=== PATIENT | female | born 1955 | race Caucasian/White ===

== ENCOUNTER 2017-09-03 11:30 | Emergency (ER) | payer MEDICAID ==
--- NOTE | 2017-09-03 12:24 | EDM.PDOC ---
ED HPI GENERAL MEDICAL PROBLEM - General Chief Complaint: General Stated Complaint: MEDICAL VIA NORTH Time Seen by Provider: 09/03/17 11:45 Source of Information: Reports: Patient, EMS History Limitations: Reports: No Limitations - History of Present Illness INITIAL COMMENTS - FREE TEXT/NARRATIVE: 62-year-old female who became short of breath and developed chest tightness after having a confrontation with her employer. She felt she was unable to breathe and started developing numbness in her hands and face so they called the ambulance. EMS had a normal EKG, normal vitals other than O2 saturations at 100%. Patient has a stridorous-like breath sound on inspiration when she gets anxious. She does not have a long-standing anxiety history. She has been dealing with an inflamed left knee with effusion and pain over the past several weeks. No fevers or chills. No cough. Onset: Sudden Location: Reports: Chest Quality: Reports: Pressure Severity: Moderate Associated Symptoms: Reports: Chest Pain, Malaise. Denies: Cough - Related Data Allergies Allergy/AdvReac Type Severity Reaction Status Date / Time penicillin V [Penicillin V] Allergy Severe Rash Verified 10/30/15 18:53 fentanyl AdvReac Severe Vomiting Verified 10/30/15 18:53 nortriptyline [Nortriptyline] AdvReac Mild bloating,ga Verified 10/30/15 18:53 s Home Meds: Home Meds Lisinopril [Lisinopril] 20 mg PO DAILY 05/24/13 [History] Citalopram Hydrobromide [Celexa] 25 mg PO BEDTIME 08/24/17 [History] Gabapentin [Neurontin] 300 mg PO BID 08/24/17 [History] Morphine [MS Contin] 15 mg PO Q12HR 08/24/17 [History] oxyCODONE HCl [Oxycodone HCl] 5 mg PO TID PRN 08/24/17 [History] Past Medical History Cardiovascular History: Reports: Hypertension Gastrointestinal History: Reports: Cholelithiasis Musculoskeletal History: Reports: Back Pain, Chronic, Other (See Below) Other Musculoskeletal History: L knee pain Psychiatric History: Reports: Anxiety, Depression, Suicidal Ideation - Infectious Disease History Infectious Disease History: Reports: Chicken Pox, Measles, Mumps - Past Surgical History GI Surgical History: Reports: Cholecystectomy Female Surgical History: Reports: Tubal Ligation Social & Family History - Tobacco Use Smoking Status *Q: Former Smoker Years of Tobacco use: 20 Used Tobacco, but Quit: Yes Month Tobacco Last Used: 10 years ago Second Hand Smoke Exposure: No - Caffeine Use Caffeine Use: Reports: Coffee - Alcohol Use Days Per Week of Alcohol Use: 0 - Recreational Drug Use Recreational Drug Use: No ED ROS GENERAL - Review of Systems Review Of Systems: See Below Constitutional: Reports: Malaise. Denies: Fever, Chills HEENT: Reports: Other (perioral numbness) Respiratory: Reports: Shortness of Breath GI/Abdominal: Denies: Nausea, Vomiting Musculoskeletal: Reports: Back Pain, Other (Left knee pain) Skin: Reports: No Symptoms Neurological: Reports: Dizziness, Paresthesia (Of both hands and face). Denies : Headache Psychiatric: Reports: Anxiety ED EXAM, GENERAL - Physical Exam Exam: See Below Exam Limited By: No Limitations General Appearance: Alert, Anxious, Mild Distress Eye Exam: Bilateral Eye: Normal Inspection Respiratory/Chest: No Respiratory Distress, Lungs Clear Cardiovascular: Regular Rate, Rhythm Neurological: Alert, Oriented. No: Confused, Disoriented, Slow to Respond Psychiatric: Anxious Skin Exam: Warm, Dry Course - Vital Signs Last Recorded V/S: Last Vital Signs Temp 97.5 F 09/03/17 11:43 Pulse 102 H 09/03/17 14:19 Resp 18 09/03/17 14:19 BP 126/62 09/03/17 14:19 Pulse Ox 95 09/03/17 14:19 - Orders/Labs/Meds Labs: Laboratory Tests 09/03/17 09/03/17 09/03/17 Range/Units 12:09 12:25 12:25 WBC 8.7 (4.5-11.0) K/uL RBC 4.28 (3.30-5.50) M/uL Hgb 12.0 (12.0-15.0) g/dL Hct 37.0 (36.0-48.0) % MCV 86 (80-98) fL MCH 28 (27-31) pg MCHC 32 (32-36) % Plt Count 355 (150-400) K/uL Neut % (Auto) 77 H (36-66) % Lymph % (Auto) 13 L (24-44) % [place]ne % (Auto) 10 H (2-6) % Eos % (Auto) 0 L (2-4) % Baso % (Auto) 0 (0-1) % D-Dimer, Quantitative 1790 H (0.0-400.0) ng/mL Puncture Site Lt radial ABG pH 7.538 H (7.350-7.450) ABG pCO2 23.4 L (35.0-42.0) mmHg ABG pO2 106.0 H (75.0-100.0) mmHg ABG HCO3 19.9 L (22.0-26.0) mmol/L ABG Total CO2 17.6 L (21.0-25.0) mmol/L ABG O2 Saturation 98.2 H (95.0-98.0) % ABG O2 Content 16.0 (15.0-23.0) %vol ABG Base Excess -1.2 mm/L ABG Hemoglobin 11.6 L (12.0-16.0) g/dL ABG Oxyhemoglobin 96.7 % ABG Carboxyhemoglobin 0.6 (0.0-1.6) % ABG Methemoglobin 0.9 % Manny Test Passed O2 Delivery Device Room air Sodium (140-148) mmol/L Potassium (3.6-5.2) mmol/L Chloride (100-108) mmol/L Carbon Dioxide (21-32) mmol/L Anion Gap (5.0-14.0) mmol/L BUN (7-18) mg/dL Creatinine (0.6-1.0) mg/dL Est Cr Clr Drug Dosing mL/min Estimated GFR (MDRD) (>60) Glucose (74-106) mg/dL Calcium (8.5-10.1) mg/dL 09/03/17 Range/Units 12:25 WBC (4.5-11.0) K/uL RBC (3.30-5.50) M/uL Hgb (12.0-15.0) g/dL Hct (36.0-48.0) % MCV (80-98) fL MCH (27-31) pg MCHC (32-36) % Plt Count (150-400) K/uL Neut % (Auto) (36-66) % Lymph % (Auto) (24-44) % [place]ne % (Auto) (2-6) % Eos % (Auto) (2-4) % Baso % (Auto) (0-1) % D-Dimer, Quantitative (0.0-400.0) ng/mL Puncture Site ABG pH (7.350-7.450) ABG pCO2 (35.0-42.0) mmHg ABG pO2 (75.0-100.0) mmHg ABG HCO3 (22.0-26.0) mmol/L ABG Total CO2 (21.0-25.0) mmol/L ABG O2 Saturation (95.0-98.0) % ABG O2 Content (15.0-23.0) %vol ABG Base Excess mm/L ABG Hemoglobin (12.0-16.0) g/dL ABG Oxyhemoglobin % ABG Carboxyhemoglobin (0.0-1.6) % ABG Methemoglobin % Manny Test O2 Delivery Device Sodium 139 L (140-148) mmol/L Potassium 3.9 (3.6-5.2) mmol/L Chloride 102 (100-108) mmol/L Carbon Dioxide 26 (21-32) mmol/L Anion Gap 14.9 H (5.0-14.0) mmol/L BUN 32 H D (7-18) mg/dL Creatinine 1.6 H (0.6-1.0) mg/dL Est Cr Clr Drug Dosing 35.00 mL/min Estimated GFR (MDRD) 33 L (>60) Glucose 111 H (74-106) mg/dL Calcium 9.7 (8.5-10.1) mg/dL Meds: Medications Discontinued Medications Generic Name Dose Route Start Last Admin Trade Name Freq PRN Reason Stop Dose Admin Lorazepam 1 mg 09/03/17 13:22 09/03/17 13:32 Ativan IM 09/03/17 13:23 1 mg ONETIME ONE Administration - Re-Assessments/Exams Free Text/Narrative Re-Assessment/Exam: 09/03/17 12:25 O2 saturations remained at 99-100% despite the patient slowing her breathing. I tried to reassure her but she remained anxious, so ABGs, CBC, BMP and chest x- ray were obtained. She was continued to be observed. 09/03/17 13:23 ABGs confirmed fairly significant hyperventilation. Her BUN and creatinine also returned elevated indicating some volume contraction. She denied any vomiting. D -dimer was mildly elevated likely from her recent invasive procedures on the left knee. She was given 1 mg of Ativan IM. 09/03/17 14:21 45 minutes after the Ativan injection everything normalized. O2 saturations at 95%, blood pressure normalized, pulse was normal, and the patient felt markedly better subjectively. She was encouraged to rest the next few days, drink plenty of water and consider rechecking with Dr. Luis next week to reassess her anxiety level as well as her kidney function and hydration. Departure - Departure Time of Disposition: 14:40 Disposition: Home, Self-Care 01 Condition: Good Clinical Impression: Acute hyperventilation syndrome - Discharge Information Instructions: Hyperventilation Referrals: PCP,None [Ordering Only Provider] - Forms: ED Department Discharge Care Plan Goals: Try to rest the rest of today, drink plenty of water and increase activity as tolerated. Consider rechecking next week with Dr. Luis, or return to the emergency room at any time if worsening or concerns.
[2017-09-03] MEDS ORDERED: LORazepam 2 MG/ML MDV IM ONE (13:22)
[2017-09-03 14:21] VITALS: BP 126/62
--- NOTE | 2017-09-03 16:24 | CR ---
Chest 2V HISTORY: dyspnea COMPARISON: 02/03/2009 FINDINGS: Lungs appear clear and normally aerated. Cardiomediastinal silhouette is within normal limits. No vas cular redistribution or pleural fluid can be seen. Bony structures and soft tissues are unremarkable. IMPRESSION: No acute chest abnormality or significant interval change is identified.
== END 2017-09-03 14:40 | disposition home or self-care (01) ==
LOC: JP.ED 11:30
DX: F45.8 Other somatoform disorders (principal); I10 Essential (primary) hypertension; F32.9 Major depressive disorder, single episode, unspecified; Z87.891 Personal history of nicotine dependence; Z79.899 Other long term (current) drug therapy; Z88.0 Allergy status to penicillin; Z88.8 Allergy status to other drugs, medicaments and biological substances
CPT/HCPCS: 36415; 36600; 71020; 80048; 82803; 85025; 85379; 96372; 99285; J2060

== ENCOUNTER 2018-03-06 20:13 | Emergency (ER) | payer MEDICAID ==
[2018-03-06 20:39] VITALS: BP 123/63
[2018-03-06] MEDS ORDERED: cefTRIAXone 500 MG Vial IVPUSH ONE (21:30)
[2018-03-06] MEDS ORDERED: Sodium Chloride 0.9% 10 ML Syringe FLUSH PRN (21:30)
--- NOTE | 2018-03-06 21:35 | EDM.PDOC ---
ED HPI GENERAL MEDICAL PROBLEM - General Chief Complaint: Skin Complaint Stated Complaint: RED RING/BUMP ON BACK Time Seen by Provider: 03/06/18 20:45 Source of Information: Reports: Patient History Limitations: Reports: No Limitations - History of Present Illness INITIAL COMMENTS - FREE TEXT/NARRATIVE: Elizabeth presents today with complaints of painful rash to left upper back for 7 days. She states she had a pimple, her popped it and now has more pain and redness. She does not recall a tick bite. - Related Data Allergies Allergy/AdvReac Type Severity Reaction Status Date / Time penicillin V [Penicillin V] Allergy Severe Rash Verified 03/06/18 20:31 fentanyl AdvReac Severe Vomiting Verified 03/06/18 20:31 nortriptyline [Nortriptyline] AdvReac Mild bloating,ga Verified 03/06/18 20:31 s Home Meds: Home Meds Lisinopril 20 mg PO DAILY 05/24/13 [History] Citalopram Hydrobromide [Celexa] 25 mg PO BEDTIME 08/24/17 [History] Gabapentin [Neurontin] 300 mg PO BID 08/24/17 [History] Morphine [MS Contin] 15 mg PO Q12HR 08/24/17 [History] oxyCODONE HCl [Oxycodone HCl] 5 mg PO TID PRN 08/24/17 [History] busPIRone HCl [Buspirone HCl] 1 tab PO BID 03/06/18 [History] tiZANidine [Zanaflex] 1 tab PO BID 03/06/18 [History] traZODone HCl [Trazodone HCl] 2.5 cap PO BEDTIME 03/06/18 [History] Past Medical History Cardiovascular History: Reports: Hypertension Gastrointestinal History: Reports: Cholelithiasis Musculoskeletal History: Reports: Back Pain, Chronic, Other (See Below) Other Musculoskeletal History: L knee pain Psychiatric History: Reports: Anxiety, Depression, Suicidal Ideation - Infectious Disease History Infectious Disease History: Reports: Chicken Pox, Measles, Mumps - Past Surgical History GI Surgical History: Reports: Cholecystectomy Female Surgical History: Reports: Tubal Ligation Social & Family History - Tobacco Use Smoking Status *Q: Never Smoker - Caffeine Use Caffeine Use: Reports: Coffee ED ROS GENERAL - Review of Systems Review Of Systems: See Below Constitutional: Denies: Fever, Chills, Malaise, Weakness HEENT: Reports: No Symptoms Respiratory: Reports: No Symptoms Cardiovascular: Reports: No Symptoms Endocrine: Reports: No Symptoms GI/Abdominal: Reports: No Symptoms : Reports: No Symptoms Musculoskeletal: Reports: Other (She complains of left knee pain, however states this is chronic and she is scheduled for a Left TKA March 12, 2018. ). Denies: Joint Pain Skin: Reports: Rash, Erythema, Wound Neurological: Reports: No Symptoms Psychiatric: Reports: No Symptoms Hematologic/Lymphatic: Reports: No Symptoms Immunologic: Reports: No Symptoms ED EXAM, SKIN/RASH Exam: See Below Text/Narrative:: Elizabeth is an alert and oriented 62 year old female presenting with complaints of red rash to left upper back for 7 to 10 days. She states the rash started out as a pimple type wound then worsened after her tried to pop the wound. History positive for tick exposure. Exam Limited By: No Limitations General Appearance: Alert, WD/WN, No Apparent Distress Eye Exam: Bilateral Eye: EOMI, Normal Inspection, PERRL Ears: Normal External Exam, Normal Canal, Hearing Grossly Normal, Normal TMs Nose: Normal Inspection, Normal Mucosa, No Blood Throat/Mouth: Normal Inspection, Normal Oropharynx, Normal Voice, No Airway Compromise Head: Atraumatic, Normocephalic Neck: Normal Inspection, Supple, Non-Tender, Full Range of Motion. No: Lymphadenopathy (R), Lymphadenopathy (L) Respiratory/Chest: No Respiratory Distress, Lungs Clear, Normal Breath Sounds, No Accessory Muscle Use, Chest Non-Tender Cardiovascular: Normal Peripheral Pulses, Regular Rate, Rhythm, No Edema, No Murmur, No Rub Peripheral Pulses: 2+: Radial (L), Radial (R) Back Exam: Full Range of Motion, Other (tenderness and 6 to 8cm area of erythema , redness with central clearing to left upper back. No drainage. ). No: CVA Tenderness (R), CVA Tenderness (L) Extremities: Normal Inspection, Normal Range of Motion, Non-Tender, No Pedal Edema, Normal Capillary Refill Neurological: Alert, Oriented, CN II-XII Intact, Normal Cognition, Normal Gait, No Motor/Sensory Deficits Psychiatric: Normal Affect, Normal Mood Skin: Warm, Dry, Erythema, Wound/Incision, Other (small area of fluctuance to center of erythema. ) Location, Skin: Back Characteristics: Maculopapular, Erythematous, Other (no scaling of round rash noted. ). No: Vesicular, Bullous, Urticarial Associated features: Warmth, Tenderness, Inflammation. No: Induration, Scaling , Weeping, Rough Lymphatic: No Adenopathy Course - Vital Signs Last Recorded V/S: Last Vital Signs Temp 36.9 C 03/06/18 20:37 Pulse 67 03/06/18 20:37 Resp 14 03/06/18 20:37 BP 123/63 03/06/18 20:37 Pulse Ox 98 03/06/18 20:37 - Orders/Labs/Meds Orders: Active Orders 24 hr Category Date Time Status Saline Lock Insert [OM.PC] Routine Oth 03/06/18 21:30 Ordered Labs: Laboratory Tests 03/06/18 Range/Units 21:12 WBC 8.3 (4.5-11.0) K/uL RBC 4.56 (3.30-5.50) M/uL Hgb 12.0 (12.0-15.0) g/dL Hct 37.9 (36.0-48.0) % MCV 83 (80-98) fL MCH 26 L (27-31) pg MCHC 32 (32-36) % Plt Count 256 (150-400) K/uL Neut % (Auto) 66 (36-66) % Lymph % (Auto) 22 L (24-44) % [place] % (Auto) 11 H (2-6) % Eos % (Auto) 2 (2-4) % Baso % (Auto) 0 (0-1) % Patient lab work reviewe. Lymes pending. We will give rocephin 2gram IV, discharge patient with doxycycline 100mg PO BID for 14 days. Officer in agreement with plan. Meds: Medications Discontinued Medications Generic Name Dose Route Start Last Admin Trade Name Freq PRN Reason Stop Dose Admin Ceftriaxone Sodium 2,000 mg 03/06/18 21:30 03/06/18 21:57 Rocephin IVPUSH 03/06/18 21:31 Not Given ONETIME ONE Ceftriaxone Sodium Confirm 03/06/18 21:48 03/06/18 22:21 Rocephin Administered 03/06/18 21:49 Not Given Dose 2 gm .ROUTE .STK-MED ONE Ceftriaxone Sodium 2 gm/ 50 mls @ 100 mls/hr 03/06/18 22:01 03/06/18 22:03 Sodium Chloride IV 03/06/18 22:30 10 mls/hr ONETIME ONE Administration Sodium Chloride 10 ml 03/06/18 21:30 03/06/18 22:04 Saline Flush FLUSH 10 ml ASDIRECTED PRN Administration Keep Vein Open Departure - Departure Time of Disposition: 22:05 Disposition: Home, Self-Care 01 Condition: Good Clinical Impression: Erythema migrans (Lyme disease) - Discharge Information Instructions: Lyme Disease Referrals: Justo Luis Sr, MD [Primary Care Provider] - Forms: ED Department Discharge Additional Instructions: You have been evaluated and treated for erythema migrans, bulls-eye rash to left upper back. You were given rocephin 2 gram IV in the emergency room. Take doxycycline 100mg by mouth twice per day for 14 days. Push oral fluids. Contact your ortho provider and reschedule your total knee replacement procedure until your infection has cleared up. Return for worsening, issues or concerns. - My Orders Last 24 Hours: My Active Orders 03/06/18 21:30 Saline Lock Insert [OM.PC] Routine - Assessment/Plan Last 24 Hours: My Active Orders 03/06/18 21:30 Saline Lock Insert [OM.PC] Routine Assessment:: Erythema migrans (Lyme disease) Plan: Patient evaluated and treated for erythema migrans, bulls-eye rash to left upper back. She was given rocephin 2 gram IV in the emergency room. Take doxycycline 100mg by mouth twice per day for 14 days. Push oral fluids. Contact ortho provider and reschedule total knee replacement procedure until infection has cleared up. Return for worsening, issues or concerns.
[2018-03-06] MEDS ORDERED: cefTRIAXone 2 GM Vial ONE (21:48)
[2018-03-06] MEDS ORDERED: cefTRIAXone 2 GM in Sodium Chloride 0.9% 50 ML IV ONE (22:01)
== END 2018-03-06 22:42 | disposition home or self-care (01) ==
LOC: JP.ED 20:13
DX: A69.20 Lyme disease, unspecified (principal); I10 Essential (primary) hypertension; Z88.0 Allergy status to penicillin; Z88.8 Allergy status to other drugs, medicaments and biological substances
CPT/HCPCS: 36415; 85025; 96374; 99283; J0696; J7050

== ENCOUNTER 2020-12-01 14:58 | Emergency (ER) | payer MEDICAID ==
[2020-12-01 15:31] VITALS: BP 179/81; PULSE 63
--- NOTE | 2020-12-01 16:45 | EDM.PDOC ---
ED HPI GENERAL MEDICAL PROBLEM - General Chief Complaint: General Stated Complaint: MEDICAL VIA NORTH Time Seen by Provider: 12/01/20 16:03 Source of Information: Reports: Patient, EMS History Limitations: Reports: No Limitations - History of Present Illness INITIAL COMMENTS - FREE TEXT/NARRATIVE: Patient presents to the ER today via EMS due to fall that occurred at work. She states fall occurred around 1355, she reports feeling dazed after hitting the back of her head for about 5-10 minutes. A co-worker helped her off the floor / to sitting position. 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 She then had to call a nurse triage/advise line as required by her company to determine further evaluation. It was recommended she go to the ER so EMS was called. She denies any LOC/black out or passing out. She denies any other associated symptoms such as speech change, visual disturbance, headache, weakness--she does state she has head/scalp pain where she hit her head & has knot on her head. 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 - Related Data Allergies Allergy/AdvReac Type Severity Reaction Status Date / Time penicillin V [Penicillin V] Allergy Severe Rash Verified 12/01/20 15:10 fentanyl AdvReac Severe Vomiting Verified 12/01/20 15:10 nortriptyline [Nortriptyline] AdvReac Mild bloating,ga Verified 12/01/20 15:10 s Home Meds: Home Meds Gabapentin [Neurontin] 300 mg PO BID 08/24/17 [History] Morphine [MS Contin] 15 mg PO Q12HR 08/24/17 [History] oxyCODONE HCl [Oxycodone HCl] 5 mg PO TID PRN 08/24/17 [History] busPIRone HCl [Buspirone HCl] 1 tab PO BID 03/06/18 [History] tiZANidine [Zanaflex] 1 tab PO BID 03/06/18 [History] traZODone HCl [Trazodone HCl] 2.5 cap PO BEDTIME 03/06/18 [History] Sertraline [Zoloft] 1 tab PO DAILY 12/01/20 [History] Past Medical History Cardiovascular History: Reports: Hypertension Gastrointestinal History: Reports: Cholelithiasis Musculoskeletal History: Reports: Back Pain, Chronic, Other (See Below) Other Musculoskeletal History: L knee pain Psychiatric History: Reports: Anxiety, Depression, Suicidal Ideation - Infectious Disease History Infectious Disease History: Reports: Chicken Pox, Measles, Mumps - Past Surgical History GI Surgical History: Reports: Cholecystectomy Female Surgical History: Reports: Tubal Ligation Social & Family History - Tobacco Use Tobacco Use Status *Q: Never Tobacco User - Caffeine Use Caffeine Use: Reports: Coffee ED ROS GENERAL - Review of Systems Review Of Systems: See Below Constitutional: Reports: No Symptoms HEENT: Reports: No Symptoms Respiratory: Reports: No Symptoms Cardiovascular: Reports: No Symptoms Endocrine: Reports: No Symptoms GI/Abdominal: Reports: No Symptoms : Reports: No Symptoms Musculoskeletal: Reports: No Symptoms Skin: Reports: No Symptoms Neurological: Reports: Other (has head pain at site of injury). Denies: Confusion, Dizziness, Headache, Paresthesia, Trouble Speaking, Weakness, Gait Disturbance Psychiatric: Reports: No Symptoms Hematologic/Lymphatic: Reports: No Symptoms Immunologic: Reports: No Symptoms ED EXAM, GENERAL - Physical Exam Exam: See Below Exam Limited By: No Limitations General Appearance: Alert, WD/WN, No Apparent Distress Eye Exam: Bilateral Eye: EOMI, Normal Inspection, PERRL Ears: Normal External Exam, Normal Canal, Hearing Grossly Normal, Normal TMs Nose: Normal Inspection Throat/Mouth: Normal Inspection, Normal Oropharynx (moist mucous membranes) Head: Other (has noted contusion/raised area of superior posterior scalp approx 3 cm) Neck: Normal Inspection, Supple, Non-Tender, Full Range of Motion Respiratory/Chest: No Respiratory Distress, Lungs Clear, Normal Breath Sounds, No Accessory Muscle Use Cardiovascular: Normal Peripheral Pulses, Regular Rate, Rhythm, No Edema, No Murmur Peripheral Pulses: 2+: Radial (L), Radial (R) GI/Abdominal: Normal Bowel Sounds, Soft, Non-Tender (Female) Exam: Deferred Rectal (Female) Exam: Deferred Back Exam: Normal Inspection Extremities: Normal Inspection, Normal Range of Motion, Non-Tender, Normal Capillary Refill Neurological: Alert, Oriented, CN II-XII Intact, Normal Cognition, Normal Gait, No Motor/Sensory Deficits (rhomberg negative, finger to nose intact) Psychiatric: Normal Affect, Normal Mood Skin Exam: Warm, Dry, Intact, Normal Color Course - Vital Signs Last Recorded V/S: Last Vital Signs Temp 97.3 F 12/01/20 15:20 Pulse 63 12/01/20 15:20 Resp 14 12/01/20 15:20 BP 179/81 H 12/01/20 15:20 Pulse Ox 98 12/01/20 15:20 Departure - Departure Time of Disposition: 16:40 Disposition: Home, Self-Care 01 Condition: Good Clinical Impression: Fall from other slipping, tripping, or stumbling, Head injury, Contusion of scalp, initial encounter, Concussion - Discharge Information *PRESCRIPTION DRUG MONITORING PROGRAM REVIEWED*: Not Applicable *COPY OF PRESCRIPTION DRUG MONITORING REPORT IN PATIENT [place]: Not Applicable Instructions: Concussion, Adult, [id number], Facial or Scalp Contusion, [id number], Head Injury, Adult, [id number] Referrals: PCP,None [Primary Care Provider] - Forms: ED Department Discharge, ED Return to Work/School Form Additional Instructions: You may use ice or heat as you find helpful for your head pain/scalp pain You may use ibuprofen (Motrin, Advil) or acetaminophen (Tylenol) per over the counter label for headache/pain Follow up with your family doctor/primary care provider if continued symptoms of concern--please note that headache from a concussion may last for several days and I can not predict when that will go away As discussed for your sinus symptoms you may want to consider over the counter Afrin nasal decongestant--12 hour formulation use 2 sprays to each nostril twice a day for max 5 days; Flonase nasal steroid may also be used 1-2 sprays each nostril twice a day. If you have continued symptoms you may want to consider getting COVID testing completed before return to work Sepsis Event Note (ED) - Evaluation Sepsis Screening Result: No Definite Risk - Focused Exam Vital Signs: Vital Signs Temp Pulse Resp BP Pulse Ox 12/01/20 15:20 97.3 F 63 14 179/81 H 98
== END 2020-12-01 17:01 | disposition home or self-care (01) ==
LOC: JP.ED 14:58
DX: S06.0X0A Concussion without loss of consciousness, initial encounter (principal); S00.03XA Contusion of scalp, initial encounter; I10 Essential (primary) hypertension; Z88.0 Allergy status to penicillin; Z88.4 Allergy status to anesthetic agent; Z88.1 Allergy status to other antibiotic agents; Z79.899 Other long term (current) drug therapy; W01.0XXA Fall on same level from slipping, tripping and stumbling without subsequent striking against object, initial encounter; Y92.89 Other specified places as the place of occurrence of the external cause; Y99.0 Civilian activity done for income or pay
CPT/HCPCS: 99282; 99283

== ENCOUNTER 2023-10-15 07:26 | Day surgery (SDC) | payer MEDICARE ==
[2023-10-15] MEDS: Sodium Chloride 0.9% 10 ML Syringe FLUSH PRN (07:43)
[2023-10-15 08:46] VITALS: BP 133/77; PULSE 50
== END 2023-10-15 08:51 | disposition home or self-care (01) ==
LOC: JP.SDS 07:26
PROVIDERS: ATTEND Ophthalmology
DX: H26.9 Unspecified cataract (principal); N18.30 Chronic kidney disease, stage 3 unspecified; F41.9 Anxiety disorder, unspecified
CPT/HCPCS: J3490

== ENCOUNTER 2023-10-29 08:13 | Day surgery (SDC) | payer MEDICARE ==
[2023-10-29] MEDS: Sodium Chloride 0.9% 10 ML Syringe FLUSH PRN (08:36)
[2023-10-29 09:24] VITALS: BP 151/62; PULSE 51
== END 2023-10-29 09:33 | disposition home or self-care (01) ==
LOC: JP.SDS 08:13
PROVIDERS: ATTEND Ophthalmology
DX: H26.9 Unspecified cataract (principal); N18.9 Chronic kidney disease, unspecified; F32.A Depression, unspecified
CPT/HCPCS: 66984; J3490; V2632

== ENCOUNTER 2025-07-04 09:12 | Emergency (ER) | payer MEDICARE ==
[2025-07-04 09:34] VITALS: BP 168/50; PULSE 58
== END 2025-07-04 10:35 | disposition home or self-care (01) ==
LOC: JP.ED 09:12
DX: M79.661 Pain in right lower leg (principal); I10 Essential (primary) hypertension; Z79.899 Other long term (current) drug therapy; Z88.0 Allergy status to penicillin; Z88.8 Allergy status to other drugs, medicaments and biological substances; Z90.49 Acquired absence of other specified parts of digestive tract; Z87.891 Personal history of nicotine dependence
CPT/HCPCS: 93971-26; 93971-RT; 99283